=== PATIENT | male | born 1935 | race Caucasian/White ===

== ENCOUNTER 2016-12-30 17:03 | Emergency (ER) | payer OTHER, MEDICAID ==
[~2016-12-30] VITALS: Ht 177.8 cm; Wt 81.6 kg
[2016-12-30 17:05] VITALS: BP_SYST 147
[2016-12-30] MEDS ORDERED: LIDOCAINE/PRILOCAINE 5 GM CREAM (EMLA) TP ONE (17:30)
[2016-12-30] MEDS ORDERED: SULFAMETHOXAZOLE/TRIMETHOPR DS 1 TABLET PO ONE (17:30)
[2016-12-30] MEDS ORDERED: ACETAMINOPHEN 500 MG TABLET PO ONE (17:30)
[2016-12-30] MEDS ORDERED: CEPHALEXIN 500 MG CAPSULE PO ONE (17:30)
[2016-12-30] MEDS ORDERED: LIDOCAINE/EPI 2% 1:100000 20 ML VIAL IJ ONE (17:30)
[2016-12-30] MEDS ORDERED: LIDOCAINE/EPI 1% 1:100000 20 ML VIAL INJ ONE (17:39)
[2016-12-30 19:58] VITALS: BP_SYST 147
== END 2016-12-30 19:58 | disposition home or self-care (01) ==
LOC: SED 17:03
DX: L02.212 Cutaneous abscess of back [any part, except buttock and flank] (principal); R03.0 Elevated blood-pressure reading, without diagnosis of hypertension; G30.9 Alzheimer's disease, unspecified; F02.80 Dementia in other diseases classified elsewhere, unspecified severity, without behavioral disturbance, psychotic disturbance, mood disturbance, and anxiety; F41.9 Anxiety disorder, unspecified
CPT/HCPCS: 99284